=== PATIENT | female | born 1945 | race Caucasian/White ===

== ENCOUNTER 2017-05-05 22:30 | Emergency (ER) | payer OTHER ==
[~2017-05-05] VITALS: Ht 157.5 cm; Wt 98.4 kg
[~2017-05-05 22:30] MED LIST: CALCIUM; DIPH50 PO; DOCU100 PO; ENOX40I SC; GLUCOSAMIN/CHONDROIT; HYDACE10B PO; HYDACE5 PO; HYDCHL25 PO; LEVSOD100 PO; LISI20 PO; LYSINE; METF500 PO; METF500C PO; OMEP40CA12 PO; PROP80ER PO; SULI200 PO; SUPER B COMPLEX; VENL150ER PO; VICODIN 5-3001 EACH PO; VIT D3
[2017-05-05] MEDS ORDERED: GABA300 PO (23:53)
[2017-05-05] MEDS ORDERED: AMLO5 PO (23:54)
[2017-05-05] MEDS ORDERED: SERT25 PO (23:55)
[2017-05-05] MEDS ORDERED: ASPI81CH PO (23:55)
[2017-05-05] MEDS ORDERED: CHOL10002 PO (23:57)
[2017-05-05] MEDS ORDERED: NATURAL LUTEIN20 MG PO (23:57)
[2017-05-05] MEDS ORDERED: GLUCOSAMINE1000 MG PO (23:58)
[2017-05-05] MEDS ORDERED: L-Lysine500 M1 PO (23:58)
[2017-05-05] MEDS ORDERED: Chondroitin Su250 MG PO (23:59)
== END 2017-05-06 | disposition home or self-care (01) ==
LOC: ER 22:30
DX: H11.32 Conjunctival hemorrhage, left eye (principal); Z88.8 Allergy status to other drugs, medicaments and biological substances; Z88.0 Allergy status to penicillin; Z88.1 Allergy status to other antibiotic agents; Z88.6 Allergy status to analgesic agent; Z79.899 Other long term (current) drug therapy; Z79.82 Long term (current) use of aspirin; Z79.84 Long term (current) use of oral hypoglycemic drugs; I10 Essential (primary) hypertension; E03.9 Hypothyroidism, unspecified; G43.909 Migraine, unspecified, not intractable, without status migrainosus; E11.9 Type 2 diabetes mellitus without complications; Z87.891 Personal history of nicotine dependence
CPT/HCPCS: 99282

== ENCOUNTER 2018-05-31 11:38 | Day surgery (SDC) | payer OTHER ==
[~2018-05-31] VITALS: Ht 157.5 cm; Wt 94.3 kg
[~2018-05-31 11:38] MED LIST changes: +AMLO5 PO; +ASPI81CH PO; +Aspirin EC81 MG PO; +BERBERINE; +BIOTIN-D1 GM; +CHOL10002 PO; +CHONDROITIN SU100 G1 PO; +CYAN500; +Calcium Carbon650 MG PO; +Chondroitin Su250 MG PO; +EPIPEN 2-P0.3 MG/0.3 IM; +FISH OIL 1,2001 EACH PO; +FOLI400 PO; +GABA300 PO; +GLUC500; +GLUCOSAMINE1000 MG PO; +HYDR1TAB94 PO; +Ipratropium Bro30 ML; +L-Lysine500 M1; +L-Lysine500 M1 PO; +LEVO-T150 MCG PO; +Lutein 15 MG S1 EACH; +METFORMIN HCL500 MG PO; +MONT10T PO; +NATURAL LUTEIN20 MG PO; +PHOSPHATIDYL S100 GM; +PROAIR RESPICL90 MCG INH; +PYRI100; +Propranolol HCl80 MG PO; +SERT25 PO; +Super B Comple1 EAC2 PO; +VITAMIN D3 COM1 EACH PO; +Vitamin C100 M1; +Voltaren100 GM TOP
== END 2018-05-31 14:05 | disposition home or self-care (01) ==
LOC: ORSCSDS 11:38
PROVIDERS: Internal Medicine Gastroenterology
PROC: 0DBK8ZX Excision of Ascending Colon, Via Natural or Artificial Opening Endoscopic, Diagnostic (ICD-10-PCS; principal; 2018-05-31 13:00)
PROC: 0DBN8ZX Excision of Sigmoid Colon, Via Natural or Artificial Opening Endoscopic, Diagnostic (ICD-10-PCS; principal; 2018-05-31 13:00)
PROC: 0DBM8ZX Excision of Descending Colon, Via Natural or Artificial Opening Endoscopic, Diagnostic (ICD-10-PCS; principal; 2018-05-31 13:00)
PROC: 0DBL8ZX Excision of Transverse Colon, Via Natural or Artificial Opening Endoscopic, Diagnostic (ICD-10-PCS; principal; 2018-05-31 13:00)
DX: Z12.11 Encounter for screening for malignant neoplasm of colon (principal); Z86.010 Personal history of colon polyps; Z80.0 Family history of malignant neoplasm of digestive organs; D12.3 Benign neoplasm of transverse colon; D12.2 Benign neoplasm of ascending colon; D12.4 Benign neoplasm of descending colon; D12.5 Benign neoplasm of sigmoid colon; K57.30 Diverticulosis of large intestine without perforation or abscess without bleeding; E11.9 Type 2 diabetes mellitus without complications; G47.33 Obstructive sleep apnea (adult) (pediatric); E66.01 Morbid (severe) obesity due to excess calories; Z68.39 Body mass index [BMI] 39.0-39.9, adult; Z87.891 Personal history of nicotine dependence; Z79.899 Other long term (current) drug therapy
CPT/HCPCS: 82947; 88305; J7120

== ENCOUNTER → 2018-12-20 | Outpatient (CLI) | payer OTHER | END | disposition home or self-care (01) | LOC: LAB 14:30 → LAB SHORT 14:30 | DX: S81.802A Unspecified open wound, left lower leg, initial encounter (principal) | CPT/HCPCS: 87070; 87205 ==

== ENCOUNTER 2019-01-02 00:36 | Day surgery (SDC) | payer OTHER | END 2019-01-02 22:35 | disposition home or self-care (01) | LOC: WOUND 00:36 | DX: E11.622 Type 2 diabetes mellitus with other skin ulcer (principal); L97.821 Non-pressure chronic ulcer of other part of left lower leg limited to breakdown of skin; I10 Essential (primary) hypertension; Z88.8 Allergy status to other drugs, medicaments and biological substances; Z88.0 Allergy status to penicillin; Z88.1 Allergy status to other antibiotic agents; Z91.09 Other allergy status, other than to drugs and biological substances; Z91.048 Other nonmedicinal substance allergy status; Z88.5 Allergy status to narcotic agent; Z87.891 Personal history of nicotine dependence | CPT/HCPCS: G0463 ==

== ENCOUNTER 2019-01-09 00:24 | Day surgery (SDC) | payer OTHER | END 2019-01-09 22:44 | disposition home or self-care (01) | LOC: WOUND 00:24 | DX: E11.622 Type 2 diabetes mellitus with other skin ulcer (principal); L97.821 Non-pressure chronic ulcer of other part of left lower leg limited to breakdown of skin; I10 Essential (primary) hypertension | CPT/HCPCS: G0463 ==

== ENCOUNTER 2023-11-01 08:47 | Emergency (ER) | payer OTHER ==
[~2023-11-01] VITALS: Ht 157.5 cm; Wt 86.2 kg
[~2023-11-01 08:47] MED LIST changes: +PRAV20
[2023-11-01] MEDS ORDERED: OXYC5 PO (10:13)
[2023-11-01 11:14] VITALS: BP 154/72
== END 2023-11-01 11:15 | disposition home or self-care (01) ==
LOC: ER 08:47
DX: S62.317A Displaced fracture of base of fifth metacarpal bone, left hand, initial encounter for closed fracture (principal); S01.511A Laceration without foreign body of lip, initial encounter; S61.412A Laceration without foreign body of left hand, initial encounter; S60.511A Abrasion of right hand, initial encounter; I10 Essential (primary) hypertension; E11.9 Type 2 diabetes mellitus without complications; E03.9 Hypothyroidism, unspecified; G43.909 Migraine, unspecified, not intractable, without status migrainosus; W01.0XXA Fall on same level from slipping, tripping and stumbling without subsequent striking against object, initial encounter; Z88.6 Allergy status to analgesic agent; Z88.0 Allergy status to penicillin; Z91.041 Radiographic dye allergy status; Z88.8 Allergy status to other drugs, medicaments and biological substances; Z88.1 Allergy status to other antibiotic agents; Z91.048 Other nonmedicinal substance allergy status; Z88.5 Allergy status to narcotic agent; Z79.84 Long term (current) use of oral hypoglycemic drugs; Z79.82 Long term (current) use of aspirin; Z79.899 Other long term (current) drug therapy
CPT/HCPCS: 12011; 29125; 73130; 99284-25

== ENCOUNTER → 2024-01-11 | Outpatient (CLI) | payer OTHER ==
[~2024-01-11] MED LIST changes: +OXYC5 PO
== END ==
LOC: LAB SHORT 15:24 → LAB 15:24
DX: N39.0 Urinary tract infection, site not specified (principal)
CPT/HCPCS: 87077; 87086; 87186

== ENCOUNTER 2024-05-01 09:21 | Day surgery (SDC) | payer OTHER ==
[~2024-05-01] VITALS: Ht 154.9 cm; Wt 90.2 kg
[~2024-05-01 09:21] MED LIST changes: +Lactated Ringer's 1,000 ML IV ONE
[2024-05-01] MEDS ORDERED: TOCO1000 (09:47)
[2024-05-01] MEDS ORDERED: Lactated Ringer's 1,000 ML IV ONE (10:30)
[2024-05-01] MEDS ORDERED: propofoL 50 ML IV ONE (10:36)
[2024-05-01 11:36] VITALS: BP 108/50
== END 2024-05-01 11:44 | disposition home or self-care (01) ==
LOC: ORSCSDS 09:21
PROVIDERS: Internal Medicine Gastroenterology
PROC: 0DBL8ZX Excision of Transverse Colon, Via Natural or Artificial Opening Endoscopic, Diagnostic (ICD-10-PCS; principal; 2024-05-01 11:00)
PROC: 0DBM8ZX Excision of Descending Colon, Via Natural or Artificial Opening Endoscopic, Diagnostic (ICD-10-PCS; principal; 2024-05-01 11:00)
PROC: 0DBK8ZX Excision of Ascending Colon, Via Natural or Artificial Opening Endoscopic, Diagnostic (ICD-10-PCS; principal; 2024-05-01 11:00)
DX: Z12.11 Encounter for screening for malignant neoplasm of colon (principal); Z86.0101 Personal history of adenomatous and serrated colon polyps; Z80.0 Family history of malignant neoplasm of digestive organs; D12.2 Benign neoplasm of ascending colon; D12.3 Benign neoplasm of transverse colon; D12.4 Benign neoplasm of descending colon; K63.5 Polyp of colon; K57.30 Diverticulosis of large intestine without perforation or abscess without bleeding; K63.89 Other specified diseases of intestine; G47.33 Obstructive sleep apnea (adult) (pediatric); E11.9 Type 2 diabetes mellitus without complications; Z87.891 Personal history of nicotine dependence; E66.9 Obesity, unspecified; Z68.37 Body mass index [BMI] 37.0-37.9, adult; E03.9 Hypothyroidism, unspecified; E78.5 Hyperlipidemia, unspecified; I10 Essential (primary) hypertension; Z79.899 Other long term (current) drug therapy; Z79.82 Long term (current) use of aspirin
CPT/HCPCS: 82947; 88305; J2704; J7120

== ENCOUNTER → 2024-05-10 | Outpatient (CLI) | payer OTHER ==
[~2024-05-10] MED LIST changes: -Lactated Ringer's 1,000 ML IV ONE; +TOCO1000
== END ==
LOC: LAB SHORT 13:30 → LAB 13:30
DX: N39.0 Urinary tract infection, site not specified (principal)
CPT/HCPCS: 87077; 87086; 87186

== ENCOUNTER 2025-02-15 09:39 | Emergency (ER) | payer OTHER ==
[~2025-02-15] VITALS: Ht 157.5 cm; Wt 79.4 kg
[2025-02-15 11:08] VITALS: BP 159/72
== END 2025-02-15 11:08 | disposition home or self-care (01) ==
LOC: ER 09:39
DX: I10 Essential (primary) hypertension (principal); Z88.7 Allergy status to serum and vaccine; Z88.8 Allergy status to other drugs, medicaments and biological substances; Z88.0 Allergy status to penicillin; Z91.041 Radiographic dye allergy status; Z88.1 Allergy status to other antibiotic agents; E11.9 Type 2 diabetes mellitus without complications; Z87.891 Personal history of nicotine dependence; Z79.899 Other long term (current) drug therapy; Z59.89 Other problems related to housing and economic circumstances
CPT/HCPCS: 93005; 93010; 99284-25